=== PATIENT | female | born 1980 | race American Indian/Alaskan Native ===

== ENCOUNTER 2021-02-16 19:15 | Emergency (ER) | payer MEDICAID ==
[2021-02-16] MEDS ORDERED: ASPIRIN 325 MG TAB PO ONE (19:31)
--- NOTE | 2021-02-16 19:58 | XRay Report ---
CHEST 2 VIEWS INDICATION / CLINICAL INFORMATION: chest pain. COMPARISON: None available. FINDINGS: SUPPORT DEVICES: None. HEART / MEDIASTINUM: No significant abnormality. LUNGS / PLEURA: No significant pulmonary or pleural abnormality. No pneumothorax. ADDITIONAL FINDINGS: Bilateral nipple piercings IMPRESSION: 1. No acute findings. Signer Name: Avtar Vanegas MD Signed: 02/16/2021 7:54 PM Workstation Name: [id number]
[2021-02-16 20:06] LABS: Basophils # (Auto) 0.1 K/mm3 (0.0-0.1); Eosinophils # (Auto) 0.5 K/mm3 (0.0-0.4); Hematocrit 42.5 % (30.3-42.9); Hemoglobin 14.4 gm/dl (10.1-14.3); Lymphocytes # (Auto) 2.6 K/mm3 (1.2-5.4); Lymphocytes % (Auto) 33.2 % (13.4-35.0); Mean Corpuscular HGB Conc 34 % (30-34); Mean Corpuscular Volume 96 fl (79-97); Monocytes # (Auto) 0.5 K/mm3 (0.0-0.8); Monocytes % (Auto) 6.2 % (0.0-7.3); Platelet Count 189 K/mm3 (140-440); Red Blood Count 4.45 M/mm3 (3.65-5.03); Red Cell Distribution Width 14.6 % (13.2-15.2)
[2021-02-16 20:26] LABS: Alanine Aminotransferase 15 units/L (7-56); Albumin 4.2 g/dL (3.9-5); Blood Urea Nitrogen 10 mg/dL (7-17); Hemolysis Index 4
[2021-02-16 20:27] LABS: BUN/Creatinine Ratio 14
[2021-02-16 20:39] VITALS: BP 133/83
--- NOTE | 2021-02-16 20:43 | Event Note ---
ED Screening Note Date of service: 02/16/21 Time: 20:39 ED Screening Note: 40-year-old -[place] female with no past medical history presents to the emergency room for chest pain and shortness of breath x3 days. Patient states that the symptoms are getting worse. States that it radiates down her left arm. Denies any trauma. Currently on no control. Denies any recent travels. No loss of taste or smell. This initial assessment/diagnostic orders/clinical plan/treatment(s) is/are subject to change based on patients health status, clinical progression and re- assessment by fellow clinical providers in the ED. Further treatment and workup at subsequent clinical providers discretion. Patient/guardian urged not to elope from the ED as their condition may be serious if not clinically assessed and managed. Initial orders include:
[2021-02-16] MEDS ORDERED: traMADol 50 MG TAB PO ONE (21:21)
--- NOTE | 2021-02-16 21:53 | Emergency Department Report ---
ED Chest Pain HPI - General Chief Complaint: Chest Pain Stated Complaint: SOB/CHEST PAIN/ NUMBNESS IN ARM Time Seen by Provider: 02/16/21 21:14 Source: patient Mode of arrival: Ambulatory Limitations: No Limitations - History of Present Illness Initial Comments: Pt is a 40-year-old -[place] female with no past medical history presents to the emergency room for chest pain and shortness of breath x3 days. Patient states that the symptoms are getting worse. States that it radiates down her left arm. Denies any trauma. Currently on no control. Denies any recent travels. No loss of taste or smell. There has been no cough fever or chills, no n/v. Severity scale (0 -10): 4 - Related Data Previous Rx's Medication Instructions Recorded Last Taken Type Naproxen [Naprosyn] 500 mg PO BID PRN #30 tablet 02/17/21 Unknown Rx Allergies Allergy/AdvReac Type Severity Reaction Status Date / Time No Known Allergies Allergy Unverified 02/16/21 19:27 Heart Score - HEART Score History: Slightly suspicious EKG: Non-specific Age: < 45 Risk factors: No known risk factors Troponin: < normal limit HEART Score: 1 - EKG Read Time Time EKG Completed: 19:15 EKG Read Time: 19:20 ED Review of Systems ROS: Stated complaint: SOB/CHEST PAIN/ NUMBNESS IN ARM Other details as noted in HPI Constitutional: denies: chills, fever Eyes: denies: eye pain, eye discharge, vision change ENT: denies: ear pain, throat pain Respiratory: denies: cough, shortness of breath, wheezing Cardiovascular: chest pain. denies: palpitations, paroxysmal nocturnal dyspnea Endocrine: no symptoms reported Gastrointestinal: denies: abdominal pain, nausea, vomiting, diarrhea Genitourinary: denies: urgency, dysuria, discharge Musculoskeletal: back pain. denies: myalgia Skin: denies: rash, lesions Neurological: denies: headache, weakness, paresthesias Psychiatric: denies: anxiety, depression Hematological/Lymphatic: denies: easy bleeding, easy bruising ED Past Medical Hx - Past Medical History Previous Medical History?: No - Social History Smoking Status: Current Every Day Smoker Substance Use Type: Marijuana - Medications Home Medications: Home Medications Medication Instructions Recorded Confirmed Last Taken Type Naproxen [Naprosyn] 500 mg PO BID PRN #30 tablet 02/17/21 Unknown Rx ED Physical Exam - General Limitations: No Limitations General appearance: alert, in no apparent distress - Head Head exam: Present: atraumatic, normocephalic - Eye Eye exam: Present: normal appearance, EOMI Pupils: Present: normal accommodation - ENT ENT exam: Present: mucous membranes moist - Neck Neck exam: Present: normal inspection, full ROM. Absent: tenderness, lymphadenopathy, thyromegaly - Respiratory Respiratory exam: Present: normal lung sounds bilaterally, chest wall tenderness (left anterior lateral chest wall tenderness to deep palpation no crepitus no ecchymosis no stepoff ). Absent: respiratory distress, wheezes, stridor - Cardiovascular Cardiovascular Exam: Present: regular rate, normal rhythm, normal heart sounds. Absent: systolic murmur, diastolic murmur, rubs, gallop - GI/Abdominal GI/Abdominal exam: Present: soft, normal bowel sounds. Absent: distended, tenderness, bruit, hernia - Rectal Rectal exam: Present: deferred - Extremities Exam Extremities exam: Present: normal inspection, full ROM, normal capillary refill. Absent: tenderness, pedal edema - Back Exam Back exam: Present: normal inspection, full ROM. Absent: CVA tenderness (R), CVA tenderness (L) - Neurological Exam Neurological exam: Present: alert, oriented X3, CN II-XII intact, normal gait - Psychiatric Psychiatric exam: Present: normal affect - Skin Skin exam: Present: warm, dry, intact, normal color. Absent: rash ED Course Vital Signs 02/16/21 19:28 Temperature 98.6 F Pulse Rate 72 Respiratory 20 Rate Blood Pressure 133/83 O2 Sat by Pulse 100 Oximetry GABRIEL score - Gabriel Score Age > 65: (0) No Aspirin use within the Past 7 Days: (0) No 3 or more CAD Risk Factors: (0) No 2 or more Angina events in past 24 hrs: (0) No Known CAD with more than 50% Stenosis: (0) No Elevated Cardiac Markers: (0) No ST Deviation Greater than 0.5mm: (0) No GABRIEL Score: 0 ED Medical Decision Making - Lab Data Result diagrams: 02/16/21 19:53 02/16/21 19:53 Labs 02/16/21 02/16/21 19:53 19:53 WBC 7.8 RBC 4.45 Hgb 14.4 H Hct 42.5 MCV 96 MCH 32 MCHC 34 RDW 14.6 Plt Count 189 Lymph % (Auto) 33.2 [place] % (Auto) 6.2 Eos % (Auto) 6.0 H Baso % (Auto) 1.0 Lymph # (Auto) 2.6 [place] # (Auto) 0.5 Eos # (Auto) 0.5 H Baso # (Auto) 0.1 Seg Neutrophils % 53.6 Seg Neutrophils # 4.2 Sodium 138 Potassium 3.9 Chloride 102.5 Carbon Dioxide 27 Anion Gap 12 BUN 10 Creatinine 0.7 Estimated GFR > 60 BUN/Creatinine Ratio 14 Glucose 78 Calcium 9.0 Total Bilirubin 0.40 AST 17 ALT 15 Alkaline Phosphatase 53 Troponin T < 0.010 Total Protein 7.1 Albumin 4.2 Albumin/Globulin Ratio 1.4 - EKG Data EKG shows normal: sinus rhythm Rate: normal - EKG Data When compared to previous EKG there are: other (no previous ekg on file ) Interpretation: other (SR with PVCS) Sinus Rythym with PVCs, no ST Elevated OH interp by ed attending 02/16/21 21:53 - Radiology Data Radiology results: report reviewed, image reviewed CHEST 2 VIEWS INDICATION / CLINICAL INFORMATION: chest pain. COMPARISON: None available. FINDINGS: SUPPORT DEVICES: None. HEART / MEDIASTINUM: No significant abnormality. LUNGS / PLEURA: No significant pulmonary or pleural abnormality. No pneumothorax. ADDITIONAL FINDINGS: Bilateral nipple piercings IMPRESSION: 1. No acute findings. Signer Name: Avtar Vanegas MD Signed: 02/16/2021 7:54 PM Workstation Name: [id number] Transcribed By: TL Dictated By: Avtar Vanegas MD Electronically Authenticated By: Avtar Vanegas MD Signed Date/Time: 02/16/211953 - Medical Decision Making Heart score is 1, EKG normal sinus rhythm with PVCs no ST elevated OH interpreted by ED attending, chest x-ray no infiltrates no opacities, plan follow-up with PCP in 2 to 3 days return to ED should symptoms worsen.. Critical care attestation.: If time is entered above; I have spent that time in minutes in the direct care of this critically ill patient, excluding procedure time. ED Disposition Clinical Impression: Chest pain Qualifiers: Chest pain type: unspecified Qualified Code(s): R07.9 - Chest pain, unspecified Disposition: DC-01 TO HOME OR SELFCARE Is pt being admited?: No Does the pt Need Aspirin: No Condition: Stable Instructions: Nonspecific Chest Pain, Adult Additional Instructions: take medications a prescribed, follow up with primary care doctor in 2-3 days , return to emergency if symptoms worsen. Patient verbalized agreement and understanding with discharge plan. Patient DC'd home in stable condition at this time. Prescriptions: Naproxen [Naprosyn] 500 mg PO BID PRN #30 tablet PRN Reason: Pain Referrals: JOE ELDER MD [Staff Physician] - 3-5 Days Forms: Work/School Release Form(ED) Time of Disposition: 00:51
--- NOTE | 2021-02-21 17:24 | Electrocardiograph Report ---
[facility] Test Date: 2021-02-16 Test Time: 19:17:44 Pat Name: NIRMALA RANDLE Department: Room: Gender: F [employer] Teacher: ANNE : 1980 Requested By: LILLI ODELL Order Number: [id number] Reading MD: Steven Fagan Measurements Intervals [facility] Rate: 73 P: 74 WY: 137 QRS: 70 QRSD: 58 T: 61 QT: 370 QTc: 408 Interpretive Statements Sinus rhythm Multiple ventricular premature complexes No previous ECG available for comparison Electronically Signed On 02-21-2021 17:23:43 EDT by Steven Fagan
== END 2021-02-17 01:01 | disposition home or self-care (01) ==
LOC: ED 19:15
DX: R07.89 Other chest pain (principal); F17.200 Nicotine dependence, unspecified, uncomplicated; F12.10 Cannabis abuse, uncomplicated
CPT/HCPCS: 36415; 71046; 80053; 84484; 85025; 93005